=== PATIENT | female | born 1990 | race Caucasian/White ===

== ENCOUNTER → 2019-12-28 | Outpatient (CLI) | payer OTHER ==
--- NOTE | 2020-02-12 08:03 | REP ---
OBSTETRIC SONOGRAPHY: HISTORY: Supervision of for anatomy. This report was delayed due to a protracted episode of network disruption experienced by this facility. FINDINGS: Scanning through the gravid uterus demonstrates a viable single intrauterine gestation in a variable lie. motion is observed and heart rate is recorded at 140 beats per minute. Examination quality is inhibited to some degree by position and maternal body habitus. The placenta is posterior and right-sided, grade 1 without evidence of previa or abruption. Amniotic fluid is subjectively normal. Closed cervical length is viewed transabdominally and is measured at 3.2 cm. The following anatomic structures are identified and felt to be unremarkable: Cisterna magna, cavum septum, thalami, left-sided stomach, kidneys and bladder, left and right ventricular outflow tract views and four chamber heart, three vessel cord, abdominal wall cord insertion, face and lips, upper and lower extremities. The spine is less than optimally seen due to position. BIOMETRY CHART: BPD 39 mm 18 weeks 0 days Head circumference 157 mm 18 weeks 5 days Abdominal circumference 152 mm 20 weeks 3 days Femur length 29 mm 19 weeks 1 day Humeral length 30 mm 19 weeks 6 days Estimated weight is 301 grams, 91st percentile. IMPRESSION: Viable single intrauterine gestation at 19 weeks 1 day. LITA by sonography is May 22, 2020. spine less than optimally seen. MTDD
== END ==
LOC: M WHC 07:48
PROVIDERS: ATTEND Advanced Practice Midwife
DX: Z36.89 Encounter for other specified antenatal screening (principal); Z3A.18 18 weeks gestation of pregnancy

== ENCOUNTER → 2020-01-19 | Outpatient (CLI) | payer MEDICAID, OTHER ==
--- NOTE | 2020-02-16 12:39 | REP ---
FOLLOWUP OBSTETRIC ULTRASOUND DATE: 01/19/2020 at 12:32 p.m. CLINICAL: Followup anatomical assessment. COMPARISON: 12/28/2019. FINDINGS: Ultrasound examination demonstrates a single live intrauterine in variable presentation. Placenta noted posterior right-sided without placenta previa or abruption. Amniotic fluid volume is normal. Cervix measures 4.1 cm in length and appears closed. heart rate: 158 beats per minute. Age by current biometrical measurements: 22 weeks, 3 days. Estimated date of delivery: 05/21/2020. Estimated weight: 550 grams (92nd percentile). Anatomical assessment demonstrates normal cisterna magna, cavum, thalamus, spine, stomach, kidneys/bladder, three-vessel cord, and cord insertion. IMPRESSION: Single live intrauterine in variable presentation, demonstrating upper limits of normal estimated weight for age. In conjunction with prior examination, anatomical assessment is complete and normal. MTDD
== END ==
LOC: M WHC 12:14
PROVIDERS: ATTEND Advanced Practice Midwife
DX: Z34.82 Encounter for supervision of other normal pregnancy, second trimester (principal)